=== PATIENT | female | born 1995 | race Asian ===

== ENCOUNTER → 2021-12-14 10:09 | Outpatient (CLI) | payer OTHER, SELFPAY ==
--- NOTE | 2021-12-14 | DI.US.S_ITS ---
PROCEDURE: US OB >= 14 WEEKS FETUS INDICATIONS: 20WK ANATOMY SCAN OUTSIDE/PRIOR DATING DATA: Last menstrual period (LMP): 07/30/2021. LMP-based estimated date of delivery (ISREAL): 04/29/2022. First dating scan (date and location): 10/03/2021. Estimated date of delivery (ISREAL) from first dating scan: 05/01/2022. The calculations are made using the menstrual ISREAL of 04/29/2022. TECHNIQUE: Real-time scanning was performed of the fetus, with image documentation and biometric measurements. COMPARISON: None. FINDINGS: General: A single live intrauterine gestation is present. Presentation: Transverse. Placenta: Placental position is posterior , without previa. Amniotic fluid index: 10.1 cm, normal range is 5-24 cm. Single deepest vertical pocket is 3.8 cm. heart rate: 144 beats per minute. Maternal cervical canal: 3.6 cm long. Normal lower limit is 2.5 cm. biometrics: Biparietal diameter: 4.8 cm equals 20 weeks 3 days Head circumference: 18.4 cm equals 20 weeks 6 days Abdominal circumference: 15.3 cm equals 20 weeks 3 days Femur length: 3 cm equals 19 weeks 3 days Clinically estimated gestational age: 20 weeks 4 days Composite gestational age from present scan: 20 weeks 2 days Estimated weight and percentile: 330 g, 21st percentile Anatomic survey: Neuro: Ventricles are non-dilated at less than 10 mm. Cisterna magna is normal at 3-11 mm. Cerebellum is normal in size and morphology. Nuchal skin fold: Normal at less than 6 mm between 14-21 weeks gestational age. Face: Nose and lips, facial profile are normal. Spine: No evidence for spina bifida. Heart: 4-chambered heart is present, with normal ventricular outflow tracts. Diaphragm: Diaphragm is intact. Stomach: Left-sided stomach is present. Kidneys: No hydronephrosis. Normal is less than 5 mm in 2nd trimester, less than 7 mm in 3rd trimester. Cord: 3-vessel cord has orthotopic insertion. Bladder: Normal in size. Extremities: All 4 extremities identified. IMPRESSION: A single live intrauterine is seen. No significant discrepancy is found between the estimated gestational age based on these images and the estimated gestational age based upon the given date of the last menstrual period. No anatomic abnormalities are identified. We strive to produce accurate, complete, and clear reports of imaging services. To assist us in improving patient care, this report was composed using standard report templates and voice recognition software. Therefore, it may contain abnormal punctuation, insertions and/or omissions. Occasional wrong-word or sound-alike substitutions may occur. Though we review the report and make efforts to correct it, we do recommend that the report be read carefully in proper context to recognize any text inaccuracies. Dictated by: Dario Boss M.D. on 12/14/2021 at 11:34 Approved by: Dario Boss M.D. on 12/14/2021 at 11:37
== END ==
PROVIDERS: PCP Family Medicine; Referring Provider Nurse Practitioner Obstetrics & Gynecology; Visit Provider Nurse Practitioner Obstetrics & Gynecology
DX: Z34.92 Encounter for supervision of normal pregnancy, unspecified, second trimester (principal); Z3A.20 20 weeks gestation of pregnancy
CPT/HCPCS: 76811

== ENCOUNTER 2022-04-20 22:50 | Inpatient (IN) | payer OTHER, SELFPAY ==
--- NOTE | 2022-04-20 23:31 | P.HPOB_ITS ---
OB HPI Date/Time Date of admission: 04/20/22 Date Patient Seen: 04/20/22 Time Patient Seen: 23:32 History of Present Condition Chief complaint: observation of labor : 1 Para: 0 Estimated Date of Delivery: 04/29/22 Estimated Gestational Age (weeks): 38 5/7 Narrative: Fernanda Gil is a 26 year old female @ 38 5/7wks by 10 week US who presents for evaluation of labor. SROM for clear fluid today at 1430. Seen in clinic at 1630 with a reactive NST. Patient elected expectant management of PROM at that time. Contractions began shortly after and have steadily increased in frequency and intensity, now every 2 minutes and strong. Continuing to leak clear fluid. Uncomplicated PN care with CNM. Desires low intervention . and mother are present and supportive. History of Present care: good care, initiated at week # (10), number of visits (9) and pounds weight gain (45) Dating criteria: based on 1st trimester US only Ultrasounds: normal mid trimester US Obstetrical complications: none Medical complications: none Preadmission Labs Blood type: B (+) positive -: Antibody screen: negative, GBS status: negative, HBsAG: negative, HIV: negative and RPR/VDLR: negative -: Chlamydia screen: not detected and Gonorrhea screen: not detected -: Rubella: immune and Varicella: not immune HCT: 36.1 HCAB: negative PAP: Normal Cell-free DNA: Negative 1 hr GTT: 128 Evaluation Evaluation Baseline heart rate: 145 Variability: Minimal (3-5) monitor accelerations: Present Monitor Decelerations: Absent Contraction Frequency (minutes): 2 Uterine Contraction Intensity: Strong/Firm Category of Tracing: Reactive Status: Category ll Comments: CE declined by patient. [facility] Medical History Seasonal affective disorder Trauma in childhood Social History (Updated 04/21/22 @ 01:34 by Darcy Perez CNM) marital status: household members: spouse lives independently: Yes education level: high school occupational status: employed Smoking Status: Former smoker Meds Home Medications and Allergies Allergies Allergy/AdvReac Type Severity Reaction Status Date / Time Sulfa (Sulfonamide Allergy Intermediate Rash Verified 04/20/22 23:36 Antibiotics) Review of Systems Review of Systems ROS: Yes All systems reviewed with the patient and are negative except as otherwise documented OB Exam Narrative Exam Narrative: BP 136/89mmHg, HR 111bpm, T 36.1C Temporal Objective Labs Result Diagrams: 04/20/22 23:25 Assessment and Plan Assessment and Plan Assessment and Plan narrative: A: Term nullipara Active labor No indication for GBS prophylaxis SROM x 10 hours without sx of infection Cat II FHR P: Admit, routine orders. Expectant management of labor. Continuous EFM. Labor support, RPN. Reassess in 4 hours or sooner, PRN.
[2022-04-20 23:37] VITALS: BP 136/87
[2022-04-20 23:46] LABS: Add Manual Diff / Slide Review NO; Basophils Absolute Auto 100 /uL (0-100); Basophils Percent Auto 0.6 % (0-2); Eosinophils Absolute Auto 0 /uL (0-450); Eosinophils Percent Auto 0.1 % (2-4); Hematocrit 41.4 % (36-46); Hemoglobin 14.2 g/dL (12.0-16.0); Lymphocytes Absolute Auto 2100 /uL (1100-4500); Lymphocytes Percent Auto 14.4 % (25-40); Mean Corpuscular HGB Conc 34.4 % (30-36); Mean Corpuscular Hemoglobin 31.5 PG (26-34); Mean Corpuscular Volume 91.4 fL (80-100); Monocytes Absolute Auto 1000 /uL (0-900); Monocytes Percent Auto 6.6 % (3-14); Neutrophils Absolute Auto 11400 /uL (1500-7000); Neutrophils Percent Auto 78.3 % (50-75); Platelet Count 264 X10^3/uL (150-400); Red Blood Cell Count 4.52 X10^6/uL (4.0-5.2); Red Cell Distribution Width 13.8 % (11.6-14.8); White Blood Cell Count 14.6 X10^3/uL (4.5-11.0)
[2022-04-21 00:01] LABS: COVID19 -Nasal RAPID Negative (Negative)
--- NOTE | 2022-04-21 06:01 | PM.OBPRVD ---
Labor & Delivery Delivery date: 04/21/22 Intrapartal Events: Extended Tachycardia Cervical ripening method: none Induction method: none Delivery augmentation: pitocin Delivery monitor: external FHT and external uterine Route of delivery: vacuum extraction Indication for instrumentation: nonreassuring FHR tracing Episiotomy description: None L&D Laceration Description: Perineal - 1st Degree Delivery repair: chromic (3.0) Estimated blood loss (mL): 400 Anesthesia Type: Epidural Narrative: Fernanda labored well with expectant management and epidural anesthesia to C/C/+1. Pushing was initiated at +1 station d/t patient discomfort with rectal pressure. Slow descent of vertex with coaching and encouragement. tachycardia occurred 30 minutes into second stage and continued to trend up. At FHR of 190bpm, OB back-up/ was called to consult for VAVB. RT was called to standby and pitocin @ 1 mu/min was initiated because contractions had spaced significantly. Vacuum was applied by and head was brought down to the perineum with the next 4 pushes. No pop offs. Total vacuum time <1 minute. Vacuum was removed and CNM resumed managemnt. NSVB of a vigorous baby boy in KARMA position was sommersaulted through a double tight nuchal cord and placed on maternal abdomen. After cessation of pulsation, the cord was double clamped by CBM and cut by FOB. Cord blood sample was collected. Gentle cord traction and single maternal push led to a spontaneous, Schultze delivery of an apparently intactt placenta, membranes and 3VC. The remaining 30 units of pitocin in 500mL LR was stared at a bolus for heavy bleeding with uterine atony. Bleeding quickly decreased with fundal massage and pitocin. A short 1st degree perineal laceration was repaired with 3.0 Chromic in the usual fashion under adequate epidural anesthesia. EBL 400mL. Both mother and baby stable and skin to skin as I left the room. Baby 1: Infant gender: Male Presentation: vertex Position: Right Occiput Anterior Placenta delivery description: Spontaneous Cord Vessel Description: 3 Vessels and Nuchal Cord (x2) score (1 min): 7 score (5 min): 9 weight: 3.247 kg Plan for aftercare: Routine care
[2022-04-21] MEDS: KETOROLAC 30 MG/ML VIAL IV (06:48)
[2022-04-21] MEDS: DERMOPLAST SPRAY 20% 60 ML 1 SPRAY TOP (06:48)
[2022-04-21] MEDS: ACETAMINOPHEN 325 MG TABLET 650 MG PO ×2 (13:34→20:36)
[2022-04-21] MEDS: IBUPROFEN 600 MG TABLET PO ×2 (13:37→20:36)
[2022-04-22] MEDS: IBUPROFEN 600 MG TABLET PO (02:25)
[2022-04-22] MEDS: ACETAMINOPHEN 325 MG TABLET 650 MG PO (02:25)
--- NOTE | 2022-04-22 09:33 | PM.OBDS.1 ---
Discharge Providers Provider Date of admission: 04/20/22 22:50 Discharge Date: 04/22/22 Primary care physician: Oneida Tavares MD Consults: 04/22/22 05:52 Consult to Sales And Marketing Specialist Routine Comment: Discharge provider: Darcy Perez CNM Summary Hospital Course Date Patient Seen: 04/22/22 Time Patient Seen: 09:34 Diagnoses: O70.0 Hospital Course: PPD1: Stable s/p VAVB for distress with a 1st degree perineal laceration. Voiding, ambulating and breast feeding independently. Tolerating a general diet. Pain is well controlled with ibuprofen and Tylenol. Vaginal bleeding is light, without clots. Feeling ready for discharge to home with supportive at her side. Peripartum Data Delivery Method: Assisted Delivery (Vacuum assisted vaginal ) Laceration Description: Perineal - 1st Degree Episiotomy description: None Procedures: O70.0, O66.5 complications: none 1: Gender: Male Disposition of : home Time Spent with Patient Time attestation: Total time spent providing and/or coordinating discharge services: Specific discharge activities: post discharge teaching Objective Labs Result Diagrams: 04/20/22 23:25 Exam Vital Signs (past 8 hours): BP 118/83mmHg, HR 84bpm, RR 17/min, T 97.7F Temporal, 98% Other: Fudus Firm @ U-1, lochia scant, no clots. Perineum well approximated. Discharge Plan Discharge Plan Patient Disposition: Home Discharge orders & Medications Prescriptions: New ibuprofen 600 mg Tablet 600 mg PO Q6HR PRN (Reason: Pain, Mild (1-3)) 14 Days Qty: 40 0RF Follow up/Referrals: Oneida Tavares MD [Primary Care Provider] - Darcy Perez CNM [Advanced Wiring Technician] - (Follow-up by phone Monday, May 02, 2022 @ 12:00pm Follow-up in office Monday, May 30, 2022 @ 1:30pm) Diet/Activity/Treatments Diet: Regular Activity: pelvic rest x 6 weeks Skin/Wound/Dressing Care Report to your healthcare provider any signs of infection, such as:: chills, fever, increased pain, unusual drainage and unusual redness Visit Report/Discharge Packet Instructions: DI for Depression Discharge Data Primary Care Provider: Oneida Tavares
[2022-04-22] MEDS: PRENATAL VIT,CALC/IRON/FOLIC 1 TABLET 1 TAB PO (10:28)
[2022-04-22] MEDS: DOCUSATE 100 MG CAPSULE PO (10:28)
[2022-04-22 12:51] VITALS: BP 118/83; PULSE 84; RESP 17; TEMP 36.5
== END 2022-04-22 16:30 | disposition home or self-care (01) | DRG 807 ==
PROVIDERS: Admitting Provider Nurse Practitioner Obstetrics & Gynecology; PCP Family Medicine; Referring Provider Nurse Practitioner Obstetrics & Gynecology; Visit Provider Nurse Practitioner Obstetrics & Gynecology
DX: O42.02 Full-term premature rupture of membranes, onset of labor within 24 hours of rupture (principal); Z37.0 Single live birth; Z3A.38 38 weeks gestation of pregnancy; O76 Abnormality in fetal heart rate and rhythm complicating labor and delivery; O70.0 First degree perineal laceration during delivery; Z20.822 Contact with and (suspected) exposure to COVID-19
CPT/HCPCS: 36415; 59050; 85025; 86850; 86900; 86901; 87635; C9803; G0379; J1885

== ENCOUNTER → 2022-04-28 12:31 | Outpatient (ROUT) | payer OTHER, SELFPAY ==
[2022-04-28 14:04] LABS: Influenza A - CEPHEID Flu A NEGATIVE (NEGATIVE); Influenza B - CEPHEID Flu B NEGATIVE (NEGATIVE); Respiratory Syncytial Virus Negative (Negative)
[2022-04-28 14:06] LABS: COVID-19 CEPHEID 4-PLEX PCR Negative (Negative)
== END ==
PROVIDERS: PCP Family Medicine; Visit Provider Registered Nurse
DX: Z20.822 Contact with and (suspected) exposure to COVID-19 (principal)
CPT/HCPCS: 0241U

== ENCOUNTER → 2024-07-27 13:05 | Outpatient (CLI) | payer SELFPAY ==
[2024-07-27 14:20] LABS: Influenza A - CEPHEID Flu A NEGATIVE (NEGATIVE); Influenza B - CEPHEID Flu B NEGATIVE (NEGATIVE); Respiratory Syncytial Virus Negative (Negative)
[2024-07-27 14:21] LABS: COVID-19 CEPHEID 4-PLEX PCR Negative (Negative)
== END ==
PROVIDERS: Visit Provider Nurse Practitioner Family
DX: R05.9 Cough, unspecified (principal); R50.9 Fever, unspecified
CPT/HCPCS: 0241U